=== PATIENT | female | born 1945 | race Two or more races ===

== ENCOUNTER → 2023-11-11 | Emergency (ER) | payer OTHER ==
[~2023-11-11] VITALS: Ht 160 cm; Wt 71.7 kg
[~2023-11-11] MED LIST: NEURONTIN600 M1 PO; SIMVASTATIN5 MG PO
== END | disposition home or self-care (01) ==
LOC: ER 19:09
DX: S05.12XA Contusion of eyeball and orbital tissues, left eye, initial encounter (principal); W19.XXXA Unspecified fall, initial encounter; Y93.89 Activity, other specified; Y92.89 Other specified places as the place of occurrence of the external cause; Y99.9 Unspecified external cause status